=== PATIENT | female | born 1965 | race Caucasian/White ===

== ENCOUNTER 2018-06-13 15:26 | Outpatient (REF) | payer MEDICARE, MEDICAID, SELFPAY ==
[2018-06-13 21:42] LABS: C-Reactive Protein 0.74 mg/dL (0.0-0.3)
[2018-06-13 22:07] LABS: ESR 14 MM/HR (0-30)
[2018-06-16 10:23] LABS: Rheumatoid Factor 8 IU/mL (<12.5)
[2018-06-16 11:34] LABS: Cyclic Citrullinated Peptide <2.5 U/mL (<5.0)
[2018-06-16 12:49] LABS: Lyme Ab w Rflx to Lyme Confirm Negative
[2018-06-17 16:04] LABS: Anaplasma phagocytophilum Negative (Negative); B. miyamotoi PCR Negative (Negative); Babesia divergens/MO-1 Negative (Negative); Babesia duncani Negative (Negative); Babesia microti Negative (Negative); Ehrlichia chaffeensis Negative (Negative); Ehrlichia ewingii/canis Negative (Negative); Ehrlichia muris eauclairensis Negative (Negative)
== END 2018-06-13 15:46 ==
LOC: NCHCN 15:26
PROVIDERS: Referring Provider Family Medicine; Visit Provider Family Medicine
DX: M13.0 Polyarthritis, unspecified (principal)
CPT/HCPCS: 85652; 86200; 86140; 86431; 86618; 87798

== ENCOUNTER 2020-09-06 22:20 | Outpatient (REF) | payer MEDICARE, MEDICAID, SELFPAY ==
[2020-09-06 21:27] LABS: Anion Gap 7.9 mmol/L (3-11); BUN 17 mg/dL (7-18); CO2 27.1 mmol/L (21.0-32.0); CREATININE 0.89 mg/dL (0.55-1.02); Calcium 8.9 mg/dL (8.5-10.1); Chloride 105 mmol/L (98-107); Glucose 162 mg/dL (74-106); Potassium 3.8 mmol/L (3.5-5.1); Sodium 140 mmol/L (136-145)
== END 2020-09-06 22:40 ==
LOC: NCHCN 22:20
PROVIDERS: Visit Provider Family Medicine
DX: E11.9 Type 2 diabetes mellitus without complications (principal); I20.1 Angina pectoris with documented spasm
CPT/HCPCS: 80048

== ENCOUNTER 2023-06-27 11:57 | Outpatient (REF) | payer MEDICARE, MEDICAID, SELFPAY ==
[2023-06-27 19:53] LABS: Bilirubin Negative (Negative); Blood Negative (Negative); Clarity Clear (Clear); Glucose Negative (Negative); Ketones Negative (Negative); Leukocyte Esterase Negative (Negative); Nitrite Negative (Negative); Specific Gravity 1.025 (1.005-1.025); Urobilinogen 0.2 mg/dL (Up to 0.2); pH 6.5 (5-8)
== END 2023-06-27 11:58 | disposition home or self-care (01) ==
LOC: LBN 11:57
PROVIDERS: PCP Student in an Organized Health Care Education/Training Program; Visit Provider Student in an Organized Health Care Education/Training Program
DX: R31.0 Gross hematuria (principal)
CPT/HCPCS: 81003; 87086